=== PATIENT | female | born 2000 | race Caucasian/White ===

== ENCOUNTER 2019-12-26 08:41 | Emergency (ER) | payer BC ==
[~2019-12-26] VITALS: Ht 165.1 cm; Wt 50.0 kg
[2019-12-26 08:58] VITALS: TEMP 97.8
[2019-12-26] MEDS ORDERED: TYLENOL 500MG500 MG PO (09:03)
[2019-12-26 09:32] LABS: COLLECTION METHOD CLEAN CATCH
[2019-12-26 09:43] LABS: BASO % 0.3 % (0.0-2.0); EOS # 0.1 (0.0-0.7); EOS % 1.3 % (0-4.0); GRAN # 9.1 (1.4-6.5); GRAN % 87.5 % (42.2-75.2); HEMOGLOBIN 12.3 g/dl (12.0-15.0); LYMPH # 0.8 (1.2-3.4); LYMPH % 7.8 % (20.0-51.0); MEAN CELL VOLUME 95 fl (80.0-95.0); MEAN CORPUSCULAR HEMOGLOBIN 32 pg (26.0-32.0); MEAN CORPUSCULAR HGB CONC 34 g/dl (33.0-37.0); MEAN PLATELET VOLUME 8.8 fl (7.4-10.4); MONO # 0.3 (0.1-0.6); MONO % 2.8 % (1.7-9.3); PLATELET COUNT 232 K/mm3 (130-400); RED BLOOD COUNT 3.85 M/mm3 (4.10-5.30); REDCELL DISTRIBUTION WIDTH-CV 12.2 % (11.5-14.5)
[2019-12-26 09:44] LABS: HEMATOCRIT 36.5 % (35.0-45.0)
[2019-12-26 10:00] LABS: ALBUMIN 4.7 gm/dL (3.5-5.0); C-REACTIVE PROTEIN 0.7 mg/dL (0.0-0.9); CALCIUM 9.4 mg/dL (8.4-10.2); CREATININE, serum 0.75 (0.52-1.25); POTASSIUM 3.7 mmol/L (3.4-5.0); TOTAL PROTEIN 7.6 gm/dL (6.4-8.2)
[2019-12-26 10:14] LABS: MUCOUS Present /lpf; PH 5 (5-8); URINE APPEARANCE Cloudy; URINE BACTERIA Rare /hpf; URINE BILIRUBIN Negative (NEGATIVE); URINE BLOOD 1+ (NEGATIVE); URINE COLOR Yellow; URINE GLUCOSE Negative (NEGATIVE); URINE KETONE Negative (NEGATIVE); URINE LEUKOCYTE ESTERASE 3+ (NEGATIVE); URINE NITRATE Positive (NEGATIVE); URINE PROTEIN(semi-quant) 2+ (NEGATIVE); URINE UROBILINOGEN Negative (NEGATIVE)
[2019-12-26] MEDS ORDERED: IBU800 M1 PO (12:31)
[2019-12-26] MEDS ORDERED: CEFTIN 250250 MG/TAB PO (12:31)
[2019-12-26 12:55] VITALS: BP 106/64; PULSE 85
== END 2019-12-26 12:55 | disposition home or self-care (01) ==
LOC: COL.ER 08:41
PROVIDERS: Physician Assistant
DX: N12 Tubulo-interstitial nephritis, not specified as acute or chronic (principal); Z87.442 Personal history of urinary calculi
CPT/HCPCS: J0696; J1170; J1885; J2405; J7030; Q9967